=== PATIENT | female | born 2005 | race African-American/Black ===

== ENCOUNTER 2024-10-31 15:27 | Emergency (ER) | payer MEDICAID ==
[~2024-10-31] VITALS: Ht 162.6 cm; Wt 52.3 kg
[2024-10-31 15:37] VITALS: BP 103/52; PULSE 108; RESP 18; TEMP 101.8; O2SAT 99
[2024-10-31 15:56] LABS: COVID AG,FIA SOURCE NASAL SWAB
[2024-10-31 16:31] LABS: SARS-COV2 (COVID) ANTIGEN,FIA Negative (Negative)
[2024-10-31 16:37] LABS: INFLUENZA TYPE A NEGATIVE FOR TYPE A (NEGATIVE); INFLUENZA TYPE B NEGATIVE FOR TYPE B (NEGATIVE)
[2024-10-31] MEDS ORDERED: IBUP-1492 PO (18:43)
[2024-10-31] MEDS ORDERED: ACET-3385 PO (18:43)
[2024-10-31] MEDS: ACETAMINOPHEN 500 MG TABLET PO ONE (19:15)
[2024-10-31] MEDS ORDERED: GUAI100L96 PO (19:29)
== END 2024-10-31 19:19 | disposition home or self-care (01) ==
LOC: EMS 15:27
DX: J06.9 Acute upper respiratory infection, unspecified (principal); B97.89 Other viral agents as the cause of diseases classified elsewhere; Z20.822 Contact with and (suspected) exposure to COVID-19
CPT/HCPCS: 87804; 99283